=== PATIENT | male | born 1950 | race Caucasian/White ===

== ENCOUNTER 2017-11-29 13:20 | Inpatient (IN) | payer OTHER ==
[~2017-11-29] VITALS: Ht 185.4 cm; Wt 93.0 kg
--- NOTE | ~2017-11-29 | EKG ---
[address] [place] [address] ELECTROCARDIOGRAM REPORT Name: SHAYLA GONZALESPAM [place] Room #: 423-1 ADM IN M.R.#: [id number] Admission: 11/29/17 Attend Phys: Kurt Monahan MD Discharge: Date of : 50 Report #: [id number] THIS REPORT FOR: //name// [facility] ED Test Date: 2017-11-29 Test Time: 16:26:36 Pat Name: MONTY GONZALES Department: Room: [facility] Gender: M Agency Cashier: nathan palmer : 1950 Requested By: Kodi Raygoza Order Number: [id number] MD: Bruce Velásquez Measurements Intervals [place] Rate: 63 P: 45 SD: 177 QRS: 29 QRSD: 95 T: 36 QT: 397 QTc: 407 Interpretive Statements Sinus rhythm Borderline low voltage, extremity leads No previous ECG available for comparison Electronically Signed On 11-30-2017 11:04:39 CDT by Bruce Velásquez [email or web address] <ELECTRONICALLY SIGNED> By: Bruce Velásquez MD 11/30/17 1104 [id number] 1626 MD SHAYAN Russell
[~2017-11-29 13:20] MED LIST: FLEXERIL PO; NO HOME MEDS; NORCO 5-325 TA1 EACH PO
[2017-11-29 14:29] VITALS: BP 150/84
[2017-11-29 15:52] LABS: ABSOLUTE NEUTROPHILS 10.3 thou/uL (1.4-8.2); BASOPHILS 0.5 % (0.0-2.0); HEMATOCRIT 45.6 % (42.0-52.0); LYMPHOCYTES 6.7 % (24.0-44.0); MCHC 35.1 g/dL (28.0-37.0); MCV 94.1 fL (80.0-100.0); MONOCYTES 2.5 % (1.0-8.0); PLATELET COUNT 232 thou/uL (150-400); POLYS 90.3 % (36.0-66.0); RBC 4.84 mil/uL (4.50-6.00); RDW 12.8 % (10.5-14.5); WBC 11.5 thou/uL (4.0-11.0)
[2017-11-29 16:03] LABS: ANION GAP 5 mmol/L (7-16); BUN 29 mg/dL (7-18); CALCIUM 8.9 mg/dL (8.5-10.1); CHLORIDE 102 mmol/L (98-107); CO2 27 mmol/L (21-32); CREATININE 0.9 mg/dL (0.7-1.3); GLUCOSE 128 mg/dL (74-106); POTASSIUM 4.4 mmol/L (3.5-5.1); SODIUM 134 mmol/L (136-145)
[2017-11-29 16:11] LABS: ALBUMIN 4.1 g/dL (3.4-5.0); LIPASE 363 U/L (73-393); SGOT 26 U/L (15-37); SGPT 46 U/L (30-65); TOTAL BILIRUBIN 0.5 mg/dL (<0.1-1.0); TOTAL PROTEIN 7.4 g/dL (6.4-8.2); TROPONIN-I <0.06 ng/mL (<0.06)
[2017-11-29] MEDS ORDERED: KRILL OIL500 MG PO (16:33)
[2017-11-29] MEDS ORDERED: LISINOPRIL5 MG PO (16:33)
[2017-11-29] MEDS ORDERED: CENTRUM COMPLE1 EACH PO (16:34)
[2017-11-29 18:17] VITALS: BP 160/84
[2017-11-29 18:40] VITALS: BP 151/86
[2017-11-29 19:24] LABS: URINE BILIRUBIN NEGATIVE (Negative); URINE BLOOD 1+ (Negative); URINE CLARITY CLEAR; URINE COLOR YELLOW; URINE GLUCOSE-RANDOM* NEGATIVE (Negative); URINE KETONES NEGATIVE (Negative); URINE LEUKOCYTES-REFLEX NEGATIVE (Negative); URINE NITRITE-REFLEX NEGATIVE (Negative); URINE PROTEIN (DIPSTICK) NEGATIVE (Negative); URINE UROBILINOGEN 0.2 E.U./dl (0.2-1.0)
[2017-11-29 19:32] LABS: BACTERIA-REFLEX None Seen /HPF (None Seen); CASTS None Seen /LPF (None Seen); CRYSTALS None Seen /LPF (None Seen); MUCUS 0-3 Light strn/LPF (None Seen); SQUAMOUS None Seen /LPF (0-3); URINE RBC 3-10 Few /HPF (0-2); URINE WBC-REFLEX None Seen /HPF (0-5)
[2017-11-30 04:51] VITALS: BP 126/80
[2017-11-30 05:58] LABS: CALCIUM 8.3 mg/dL (8.5-10.1); CREATININE 0.9 mg/dL (0.7-1.3); POTASSIUM 4.1 mmol/L (3.5-5.1)
[2017-11-30 07:03] VITALS: BP 128/74
[2017-11-30] MEDS ORDERED: ANTIVERT25 MG PO (11:07)
[2017-11-30 11:11] VITALS: BP 128/74
== END 2017-11-30 13:30 | disposition home or self-care (01) | DRG 149 ==
LOC: ER 13:20 → EROBS 17:58 → 4E 19:43
PROVIDERS: Hospitalist; Physician Assistant
DX: H81.10 Benign paroxysmal vertigo, unspecified ear (principal); I10 Essential (primary) hypertension; Z79.899 Other long term (current) drug therapy
CPT/HCPCS: 10183